=== PATIENT | male | born 1985 | race Native Hawaiian/Other Pacific Islander ===

== ENCOUNTER 2017-09-30 08:07 | Emergency (ER) | payer OTHER ==
[~2017-09-30] VITALS: Ht 185.4 cm; Wt 104.3 kg
[2017-09-30 08:16] VITALS: TEMP 98
[2017-09-30 09:13] LABS: PLATELET COUNT 279 K/uL (142-355)
[2017-09-30 09:39] LABS: POTASSIUM 3.8 mmol/L (3.6-5.2); SODIUM 139 mmol/L (136-145)
[2017-09-30 12:02] VITALS: BP 134/92
== END 2017-09-30 12:07 | disposition home or self-care (01) ==
LOC: ED 08:07
PROVIDERS: Emergency Medicine
DX: R07.89 Other chest pain (principal); R06.02 Shortness of breath; R53.1 Weakness; R11.2 Nausea with vomiting, unspecified; K21.9 Gastro-esophageal reflux disease without esophagitis; T67.5XXA Heat exhaustion, unspecified, initial encounter
CPT/HCPCS: 36415; 80053; 81000; 82150; 82550; 82553; 83690; 84484; 85027; 93005; 96360; 99284

== ENCOUNTER 2018-10-29 19:34 | Emergency (ER) | payer OTHER ==
[~2018-10-29] VITALS: Ht 185.4 cm; Wt 117.9 kg
[2018-10-29 19:39] VITALS: BP 142/105; TEMP 97.9
== END 2018-10-29 20:56 | disposition home or self-care (01) ==
LOC: ED 19:34
DX: H10.9 Unspecified conjunctivitis (principal)
CPT/HCPCS: 99283

== ENCOUNTER 2020-04-11 19:08 | Emergency (ER) | payer OTHER ==
[~2020-04-11] VITALS: Ht 185.4 cm; Wt 127.0 kg
[2020-04-11 23:07] VITALS: BP 148/88; TEMP 98.3
== END 2020-04-11 23:07 | disposition home or self-care (01) ==
LOC: ED 19:12
DX: S09.8XXA Other specified injuries of head, initial encounter (principal); S20.223A Contusion of bilateral back wall of thorax, initial encounter; W10.8XXA Fall (on) (from) other stairs and steps, initial encounter; Y92.89 Other specified places as the place of occurrence of the external cause
CPT/HCPCS: 99283

== ENCOUNTER 2020-05-13 14:46 | Emergency (ER) | payer OTHER ==
[~2020-05-13] VITALS: Ht 185.4 cm; Wt 127.0 kg
[2020-05-13 14:59] VITALS: TEMP 98.6
[2020-05-13 15:57] LABS: PLATELET COUNT 286 K/uL (142-355)
[2020-05-13 16:08] LABS: POTASSIUM 3.7 mmol/L (3.6-5.2)
[2020-05-13 16:56] VITALS: BP 158/89
== END 2020-05-13 16:56 | disposition home or self-care (01) ==
LOC: ED 14:46
PROVIDERS: Family Medicine
DX: J40 Bronchitis, not specified as acute or chronic (principal); J06.9 Acute upper respiratory infection, unspecified; R05 Cough; Z20.828 Contact with and (suspected) exposure to other viral communicable diseases; F17.210 Nicotine dependence, cigarettes, uncomplicated
CPT/HCPCS: 80053; 81000; 85027; 87502; 87635; 87651; 94664; 99283; J1100; U0003

== ENCOUNTER 2020-08-23 12:06 | Emergency (ER) | payer OTHER | END 2020-08-23 14:05 | disposition home or self-care (01) | LOC: ED 12:06 | DX: L03.113 Cellulitis of right upper limb (principal); S60.561A Insect bite (nonvenomous) of right hand, initial encounter; X58.XXXA Exposure to other specified factors, initial encounter; Y93.89 Activity, other specified; Y92.89 Other specified places as the place of occurrence of the external cause | CPT/HCPCS: 96372; 99283; J2930 ==

== ENCOUNTER 2021-02-28 18:53 | Emergency (ER) | payer OTHER ==
[~2021-02-28] VITALS: Ht 185.4 cm; Wt 99.3 kg
[2021-02-28 19:54] LABS: PLATELET COUNT 213 K/uL (142-355)
[2021-02-28 20:17] LABS: POTASSIUM 3.8 mmol/L (3.6-5.2)
[2021-02-28 21:03] LABS: PARTIAL THROMBOPLASTIN TIME 26.9 SECONDS (24.5-33.6)
[2021-02-28 21:09] VITALS: BP 128/78; TEMP 98.3
== END 2021-02-28 21:09 | disposition home or self-care (01) ==
LOC: ED 18:53
PROVIDERS: Hospitalist
DX: R07.89 Other chest pain (principal); R09.1 Pleurisy; J06.9 Acute upper respiratory infection, unspecified; F17.210 Nicotine dependence, cigarettes, uncomplicated; Z20.822 Contact with and (suspected) exposure to COVID-19
CPT/HCPCS: 36415; 80053; 82550; 83880; 84484; 85027; 85379; 85610; 85730; 87635; 93005; 96372; 99283; J1885; J2930; U0003

== ENCOUNTER 2021-03-18 03:31 | Emergency (ER) | payer OTHER ==
[~2021-03-18] VITALS: Ht 188 cm; Wt 96.2 kg
[2021-03-18 04:50] VITALS: BP 141/90
== END 2021-03-18 04:50 | disposition home or self-care (01) ==
LOC: ED 03:31
DX: J06.9 Acute upper respiratory infection, unspecified (principal); J98.01 Acute bronchospasm; U07.1 COVID-19; F17.210 Nicotine dependence, cigarettes, uncomplicated
CPT/HCPCS: 87502; 87635; 87651; 99283; U0003

== ENCOUNTER 2021-06-20 19:26 | Emergency (ER) | payer OTHER ==
[~2021-06-20] VITALS: Ht 188 cm; Wt 112.5 kg
[2021-06-20 21:37] VITALS: BP 160/90; TEMP 98
== END 2021-06-20 21:37 | disposition home or self-care (01) ==
LOC: ED 19:26
DX: M54.2 Cervicalgia (principal); R51.9 Headache, unspecified; V53.5XXA Driver of pick-up truck or van injured in collision with car, pick-up truck or van in traffic accident, initial encounter; Y92.89 Other specified places as the place of occurrence of the external cause
CPT/HCPCS: 99283